=== PATIENT | male | born 1980 | race Caucasian/White ===

== ENCOUNTER 2023-12-01 23:08 | Inpatient (IN) | payer BC, OTHER ==
[2023-12-01 23:41] LABS: #Basophils 0.08 10x3/uL (0.0-0.2); #Eosinphils Less than 0.03 10x3/uL (0.0-0.7); %Basophils 0.5 % (0.0-1.0); %Eosinophils 0.1 % (0.0-10.0); %Lymphocytes 6.6 % (21.0-51.0); %Monocytes 5.8 % (0.0-10.0); %Neutrophils 86.4 % (42.0-75.0); Hematocrit 40.5 % (42.0-52.0); Hemoglobin 14.4 g/dL (14.0-18.0); Mean Corpuscular HGB CONC 35.6 g/dL (32.0-36.0); Mean Corpuscular Hemoglobin 32.7 pg (27.0-31.0); Mean Platelet Volume 10.9 fL (7.4-10.4); Platelet Count 226 10x3/uL (130-400); RBC Distribution Width 11.9 % (11.5-14.5)
[2023-12-02 00:05] LABS: ALT (SGPT) 10 U/L (8-55); AST (SGOT) 9 U/L (5-34); Albumin 3.5 g/dL (3.5-5.0); Alkaline Phosphatase 61 U/L (40-110); Anion Gap 15 mmol/L (10-20); BUN (Urea Nitrogen) 15 mg/dL (8.9-20.6); Bilirubin, Total 3.6 mg/dL (0.2-1.2); Calc. Creatinine Clearance 0 mL/min (70-130); Calcium 8.9 mg/dL (7.8-10.44); Carbon Dioxide 22 mmol/L (22-29); Chloride 95 mmol/L (98-107); Estimated GFR 103; Glucose 341 mg/dL (70-105); Potassium 4.5 mmol/L (3.5-5.1); Protein, Total 7.5 g/dL (6.0-8.3); Sodium 127 mmol/L (136-145)
[2023-12-02] MEDS ORDERED: Morphine 4 MG/ML VIAL ONE (03:02)
[2023-12-02] MEDS ORDERED: Sodium Chloride 0.9% 100 ML ONE (03:08)
[2023-12-02] MEDS ORDERED: Piperacillin/Tazobactam 4.5 GM VIAL ONE (03:08)
[2023-12-02] MEDS ORDERED: Vancomycin (BATCH) 2 GM/500 ML BAG ONE (06:37)
[2023-12-02 07:50] VITALS: BMI 35.9
[2023-12-02] MEDS ORDERED: Dextrose 50% Abboject 50 ML SYRINGE SLOW IVP PRN (08:38)
[2023-12-02] MEDS ORDERED: HumaLOG 300 UNITS/3 ML VIAL SC PRN ×2 (08:38)
[2023-12-02] MEDS ORDERED: Glucagon 1 MG/ML KIT IM PRN (08:38)
[2023-12-02] MEDS ORDERED: Dextrose 5% in Water 1,000 ML IV PRN (08:38)
[2023-12-02] MEDS: Cefepime 2 GM in Sodium Chloride 0.9% 100 ML IVPB SCH (10:14)
[2023-12-02] MEDS: Insulin Glargine 30 UNITS/0.3 ML VIAL SC SCH (10:15)
[2023-12-02] MEDS: Lactated Ringer's 1,000 ML IV SCH (11:55)
[2023-12-02] MEDS: Insulin Lispro 100 UNIT/ML 10 ML VIAL SC PRN ×2 (11:55→21:44)
[2023-12-02] MEDS: Acetaminophen 500 MG TAB PO SCH (11:55)
[2023-12-02] MEDS: Acetaminophen 325 MG TAB ONE (11:59)
[2023-12-02] MEDS ORDERED: Iopamidol-370 76% 500 ML MDV (1 ML CHARGE) ONE (12:46)
[2023-12-02] MEDS ORDERED: Magnevist 469MG/ML 20 ML VIAL ONE (13:25)
[2023-12-02 13:32] LABS: Hemoglobin A1c 8.6 % (4.0-6.0)
[2023-12-02] MEDS: metroNIDAZOLE 500 MG in Premix 1 BAG IVPB SCH (13:42)
[2023-12-02] MEDS: Vancomycin (BATCH) 1.25 GM in Premix 1 BAG IVPB SCH (13:42)
[2023-12-02] MEDS: oxyCODONE 5 MG TAB PO PRN (16:44)
[2023-12-02] MEDS ORDERED: Vancomycin 1.5 GM in Sodium Chloride 0.9% 250 ML 300 ML IVPB SCH (19:00)
[2023-12-03 05:21] LABS: #Basophils 0.05 10x3/uL (0.0-0.2); #Eosinphils Less than 0.03 10x3/uL (0.0-0.7); %Basophils 0.3 % (0.0-1.0); %Eosinophils 0.1 % (0.0-10.0); %Monocytes 7.6 % (0.0-10.0); %Neutrophils 84.9 % (42.0-75.0); Hematocrit 34.9 % (42.0-52.0); Hemoglobin 12.3 g/dL (14.0-18.0); Mean Corpuscular HGB CONC 35.2 g/dL (32.0-36.0); Mean Corpuscular Hemoglobin 33.8 pg (27.0-31.0); Mean Corpuscular Volume 95.9 fL (78.0-98.0); Mean Platelet Volume 10.7 fL (7.4-10.4); Platelet Count 195 10x3/uL (130-400); RBC Distribution Width 12.2 % (11.5-14.5); Red Blood Cell (RBC) Count 3.64 mill/uL (4.70-6.10)
[2023-12-03 05:52] LABS: Anion Gap 14 mmol/L (10-20); BUN (Urea Nitrogen) 15 mg/dL (8.9-20.6); Calc. Creatinine Clearance 197 mL/min (70-130); Calcium 8.2 mg/dL (7.8-10.44); Carbon Dioxide 24 mmol/L (22-29); Chloride 100 mmol/L (98-107); Estimated GFR 112; Glucose 184 mg/dL (70-105); Potassium 4.2 mmol/L (3.5-5.1); Sodium 134 mmol/L (136-145); Vancomycin, Random 17.4 ug/mL (See Comment)
[2023-12-03] MEDS: Enoxaparin 40 MG (0.4 mL) SYRINGE SC SCH (08:17)
[2023-12-03] MEDS ORDERED: Bupivacaine PF 0.5% 30 ML VIAL ONE (12:30)
[2023-12-03] MEDS ORDERED: Famotidine/PF 20 mg/2ml Vial ONE (12:40)
[2023-12-03] MEDS ORDERED: Lidocaine 2% PF 5 ML VIAL ONE (12:44)
[2023-12-03] MEDS ORDERED: fentaNYL 50 mcg/mL 1 mL Vial ONE (12:44)
[2023-12-03] MEDS ORDERED: PROPOFOL 20 ML ONE (12:44)
[2023-12-03] MEDS ORDERED: Ondansetron PF 4 MG/2 ML Vial ONE (13:00)
[2023-12-03 15:47] VITALS: BMI 35.9
[2023-12-03] MEDS ORDERED: Vancomycin (BATCH) 1.5 GM in Premix 1 BAG IVPB SCH (18:00)
[2023-12-03] MEDS: Vancomycin (BATCH) 1.5 GM in Premix 1 BAG IVPB SCH (20:25)
[2023-12-04 05:51] LABS: #Basophils 0.04 10x3/uL (0.0-0.2); %Basophils 0.4 % (0.0-1.0); %Eosinophils 1.1 % (0.0-10.0); %Lymphocytes 8.3 % (21.0-51.0); %Monocytes 7.2 % (0.0-10.0); %Neutrophils 82.3 % (42.0-75.0); Hematocrit 33.4 % (42.0-52.0); Hemoglobin 11.3 g/dL (14.0-18.0); Mean Corpuscular HGB CONC 33.8 g/dL (32.0-36.0); Mean Corpuscular Hemoglobin 32.3 pg (27.0-31.0); Mean Corpuscular Volume 95.4 fL (78.0-98.0); Mean Platelet Volume 11.2 fL (7.4-10.4); Platelet Count 202 10x3/uL (130-400); RBC Distribution Width 12.3 % (11.5-14.5)
[2023-12-04 06:09] LABS: Anion Gap 12 mmol/L (10-20); BUN (Urea Nitrogen) 16 mg/dL (8.9-20.6); Calc. Creatinine Clearance 202 mL/min (70-130); Calcium 7.7 mg/dL (7.8-10.44); Carbon Dioxide 27 mmol/L (22-29); Chloride 100 mmol/L (98-107); Estimated GFR 113; Glucose 210 mg/dL (70-105); Sodium 135 mmol/L (136-145)
[2023-12-05 06:11] LABS: Hematocrit 32.7 % (42.0-52.0); Hemoglobin 11.3 g/dL (14.0-18.0); Mean Corpuscular HGB CONC 34.6 g/dL (32.0-36.0); Mean Corpuscular Hemoglobin 33.3 pg (27.0-31.0); Mean Corpuscular Volume 96.5 fL (78.0-98.0); Mean Platelet Volume 10.7 fL (7.4-10.4); Platelet Count 214 10x3/uL (130-400); RBC Distribution Width 12.2 % (11.5-14.5); Red Blood Cell (RBC) Count 3.39 mill/uL (4.70-6.10)
[2023-12-05 06:28] LABS: Anion Gap 11 mmol/L (10-20); BUN (Urea Nitrogen) 12 mg/dL (8.9-20.6); Calc. Creatinine Clearance 240 mL/min (70-130); Calcium 8.1 mg/dL (7.8-10.44); Carbon Dioxide 26 mmol/L (22-29); Chloride 103 mmol/L (98-107); Estimated GFR 119; Glucose 173 mg/dL (70-105); Potassium 3.7 mmol/L (3.5-5.1); Sodium 136 mmol/L (136-145)
[2023-12-05 06:41] LABS: Eosinophils 4 % (0-10); Lymphocytes 14 % (21-51); Monocytes 3 % (0-10); Neutrophil 79 % (42-75); Platelet Adequacy Comment Platelets Normal; RBC Morphology Within Normal Limits
[2023-12-05] MEDS ORDERED: traMADol HCl 50 MG TAB PO PRN (08:32)
[2023-12-05] MEDS: oxyCODONE 5 MG TAB PO PRN (10:13)
[2023-12-05] MEDS: traMADol HCl 50 MG TAB PO PRN (21:09)
[2023-12-06] MEDS: Cefepime 2 GM VIAL ONE (02:10)
[2023-12-06 05:34] LABS: Anion Gap 12 mmol/L (10-20); BUN (Urea Nitrogen) 10 mg/dL (8.9-20.6); Calc. Creatinine Clearance 243 mL/min (70-130); Carbon Dioxide 26 mmol/L (22-29); Chloride 104 mmol/L (98-107); Estimated GFR 120; Glucose 132 mg/dL (70-105); Potassium 3.7 mmol/L (3.5-5.1); Sodium 138 mmol/L (136-145)
[2023-12-06 05:37] LABS: Hematocrit 34.9 % (42.0-52.0); Hemoglobin 11.8 g/dL (14.0-18.0); Mean Corpuscular HGB CONC 33.8 g/dL (32.0-36.0); Mean Corpuscular Volume 97.5 fL (78.0-98.0); Mean Platelet Volume 10.5 fL (7.4-10.4); Platelet Count 248 10x3/uL (130-400); RBC Distribution Width 12.3 % (11.5-14.5); Red Blood Cell (RBC) Count 3.58 mill/uL (4.70-6.10)
[2023-12-06 06:32] LABS: Anisocytosis MODERATE=16-30 cells HPF (0-5); Band 9 % (5-11); Eosinophils 3 % (0-10); Lymphocytes 21 % (21-51); Macrocytosis SLIGHT = 6-15 cells HPF (0-5); Monocytes 5 % (0-10); Neutrophil 61 % (42-75); Platelet Adequacy Comment Platelets Normal; Polychromasia SLIGHT = 2-3 cells HPF (0-2)
[2023-12-06] MEDS: Lisinopril 5 MG TAB PO SCH ×2 (09:57→17:39)
[2023-12-06] MEDS: Vancomycin (BATCH) 1.75 GM in Premix 1 BAG IVPB SCH (22:16)
[2023-12-07 05:44] LABS: Hematocrit 35.7 % (42.0-52.0); Hemoglobin 12.2 g/dL (14.0-18.0); Mean Corpuscular HGB CONC 34.2 g/dL (32.0-36.0); Mean Corpuscular Hemoglobin 32.3 pg (27.0-31.0); Mean Corpuscular Volume 94.4 fL (78.0-98.0); Platelet Count 296 10x3/uL (130-400); RBC Distribution Width 12.1 % (11.5-14.5); Red Blood Cell (RBC) Count 3.78 mill/uL (4.70-6.10)
[2023-12-07 06:09] LABS: Band 1 % (5-11); Eosinophils 6 % (0-10); Lymphocytes 22 % (21-51); Monocytes 12 % (0-10); Myelocyte 1 % (0-0); Neutrophil 55 % (42-75); Platelet Adequacy Comment Platelets Normal; RBC Morphology Within Normal Limits
[2023-12-07 06:59] LABS: Anion Gap 9 mmol/L (10-20); BUN (Urea Nitrogen) 6 mg/dL (8.9-20.6); Calc. Creatinine Clearance 247 mL/min (70-130); Carbon Dioxide 26 mmol/L (22-29); Chloride 103 mmol/L (98-107); Estimated GFR 120; Glucose 98 mg/dL (70-105); Potassium 3.4 mmol/L (3.5-5.1); Sodium 135 mmol/L (136-145)
[2023-12-07] MEDS: Amlodipine 5 MG TAB PO SCH (08:48)
[2023-12-07] MEDS: Lisinopril 10 MG TAB PO SCH (08:48)
[2023-12-07] MEDS: hydrALAZINE 25 MG TAB PO SCH ×4 (11:49→20:34)
[2023-12-08] MEDS: cloNIDine 0.1 MG TAB PO SCH (01:55)
[2023-12-08 06:13] LABS: %Basophils 1.4 % (0.0-1.0); %Eosinophils 4.8 % (0.0-10.0); %Lymphocytes 27.9 % (21.0-51.0); %Monocytes 10.1 % (0.0-10.0); %Neutrophils 53.4 % (42.0-75.0); Hematocrit 34.9 % (42.0-52.0); Hemoglobin 11.8 g/dL (14.0-18.0); Mean Corpuscular HGB CONC 33.8 g/dL (32.0-36.0); Mean Corpuscular Hemoglobin 31.9 pg (27.0-31.0); Mean Corpuscular Volume 94.3 fL (78.0-98.0); Mean Platelet Volume 9.7 fL (7.4-10.4); Platelet Count 304 10x3/uL (130-400); RBC Distribution Width 12.2 % (11.5-14.5)
[2023-12-08 06:28] LABS: Vancomycin, Random 19.1 ug/mL (See Comment)
[2023-12-08 06:33] LABS: Anion Gap 12 mmol/L (10-20); BUN (Urea Nitrogen) 6 mg/dL (8.9-20.6); Calc. Creatinine Clearance 258 mL/min (70-130); Calcium 7.8 mg/dL (7.8-10.44); Carbon Dioxide 27 mmol/L (22-29); Chloride 105 mmol/L (98-107); Estimated GFR 122; Glucose 123 mg/dL (70-105); Potassium 3.5 mmol/L (3.5-5.1); Sodium 140 mmol/L (136-145)
[2023-12-08] MEDS: Morphine 4 MG/ML VIAL ONE (12:04)
[2023-12-08] MEDS: hydrALAZINE 25 MG TAB PO SCH (20:16)
[2023-12-09 05:36] LABS: %Basophils 1.9 % (0.0-1.0); %Eosinophils 6.4 % (0.0-10.0); %Lymphocytes 28.8 % (21.0-51.0); %Monocytes 9.9 % (0.0-10.0); %Neutrophils 49.9 % (42.0-75.0); Hematocrit 37.9 % (42.0-52.0); Hemoglobin 12.8 g/dL (14.0-18.0); Mean Corpuscular HGB CONC 33.8 g/dL (32.0-36.0); Mean Corpuscular Hemoglobin 31.9 pg (27.0-31.0); Mean Corpuscular Volume 94.5 fL (78.0-98.0); Mean Platelet Volume 9.7 fL (7.4-10.4); Platelet Count 327 10x3/uL (130-400); RBC Distribution Width 12.3 % (11.5-14.5); Red Blood Cell (RBC) Count 4.01 mill/uL (4.70-6.10)
[2023-12-09 06:29] LABS: Anion Gap 14 mmol/L (10-20); BUN (Urea Nitrogen) 4 mg/dL (8.9-20.6); Calc. Creatinine Clearance 258 mL/min (70-130); Calcium 8.1 mg/dL (7.8-10.44); Carbon Dioxide 27 mmol/L (22-29); Chloride 102 mmol/L (98-107); Estimated GFR 122; Glucose 118 mg/dL (70-105); Potassium 3.7 mmol/L (3.5-5.1); Sodium 139 mmol/L (136-145)
[2023-12-09] MEDS: Lisinopril 10 MG TAB PO SCH (20:51)
[2023-12-10 06:08] LABS: #Basophils 0.08 10x3/uL (0.0-0.2); %Basophils 1.6 % (0.0-1.0); %Eosinophils 5.7 % (0.0-10.0); %Lymphocytes 29.2 % (21.0-51.0); %Neutrophils 51.8 % (42.0-75.0); Hematocrit 37.6 % (42.0-52.0); Hemoglobin 12.5 g/dL (14.0-18.0); Mean Corpuscular HGB CONC 33.2 g/dL (32.0-36.0); Mean Corpuscular Hemoglobin 32.3 pg (27.0-31.0); Mean Corpuscular Volume 97.2 fL (78.0-98.0); Mean Platelet Volume 9.9 fL (7.4-10.4); Platelet Count 341 10x3/uL (130-400); RBC Distribution Width 12.5 % (11.5-14.5); Red Blood Cell (RBC) Count 3.87 mill/uL (4.70-6.10)
[2023-12-10 06:27] LABS: Anion Gap 11 mmol/L (10-20); BUN (Urea Nitrogen) 5 mg/dL (8.9-20.6); Calc. Creatinine Clearance 250 mL/min (70-130); Calcium 8.1 mg/dL (7.8-10.44); Carbon Dioxide 25 mmol/L (22-29); Chloride 107 mmol/L (98-107); Estimated GFR 121; Glucose 135 mg/dL (70-105); Potassium 3.5 mmol/L (3.5-5.1); Sodium 139 mmol/L (136-145)
[2023-12-10] MEDS: Amlodipine 10 MG TAB PO SCH (08:54)
[2023-12-10] MEDS: Morphine 4 MG/ML VIAL SLOW IVP PRN (11:21)
[2023-12-11 07:05] LABS: #Basophils 0.09 10x3/uL (0.0-0.2); %Basophils 1.7 % (0.0-1.0); %Eosinophils 4.8 % (0.0-10.0); %Monocytes 10.6 % (0.0-10.0); %Neutrophils 51.2 % (42.0-75.0); Hematocrit 38.5 % (42.0-52.0); Hemoglobin 13.3 g/dL (14.0-18.0); Mean Corpuscular HGB CONC 34.5 g/dL (32.0-36.0); Mean Corpuscular Hemoglobin 32.5 pg (27.0-31.0); Mean Corpuscular Volume 94.1 fL (78.0-98.0); Mean Platelet Volume 9.6 fL (7.4-10.4); Platelet Count 325 10x3/uL (130-400); RBC Distribution Width 12.3 % (11.5-14.5); Red Blood Cell (RBC) Count 4.09 mill/uL (4.70-6.10)
[2023-12-11 07:20] LABS: Anion Gap 11 mmol/L (10-20); BUN (Urea Nitrogen) 6 mg/dL (8.9-20.6); Calc. Creatinine Clearance 230 mL/min (70-130); Carbon Dioxide 26 mmol/L (22-29); Chloride 105 mmol/L (98-107); Estimated GFR 118; Glucose 198 mg/dL (70-105); Potassium 3.7 mmol/L (3.5-5.1); Sodium 138 mmol/L (136-145)
[2023-12-11 16:19] VITALS: BP 165/102; TEMP 98.3
== END 2023-12-11 17:50 | disposition home or self-care (01) | DRG 853 ==
LOC: ERS 23:08 → ERHOLD 12-02 06:25 → SURG B 12-02 06:29 → OBSVTOIN 12-02 11:08
PROVIDERS: ADMIT Student in an Organized Health Care Education/Training Program; ATTEND Internal Medicine
PROC: 0Y6M0ZF Detachment at Right Foot, Partial 5th Ray, Open Approach (ICD-10-PCS; principal; 2023-12-03)
DX: A41.59 Other Gram-negative sepsis (principal); M72.6 Necrotizing fasciitis; E87.1 Hypo-osmolality and hyponatremia; L02.611 Cutaneous abscess of right foot; L03.115 Cellulitis of right lower limb; M60.073 Infective myositis, right foot; I10 Essential (primary) hypertension; E11.69 Type 2 diabetes mellitus with other specified complication; G43.909 Migraine, unspecified, not intractable, without status migrainosus; F41.9 Anxiety disorder, unspecified; F32.A Depression, unspecified; F17.290 Nicotine dependence, other tobacco product, uncomplicated; E11.40 Type 2 diabetes mellitus with diabetic neuropathy, unspecified; I16.0 Hypertensive urgency; Z79.4 Long term (current) use of insulin; Z79.2 Long term (current) use of antibiotics; Z79.899 Other long term (current) drug therapy; Z91.148 Patient's other noncompliance with medication regimen for other reason; Z79.84 Long term (current) use of oral hypoglycemic drugs
CPT/HCPCS: 36415; 36416; 80048; 80053; 80202; 82248; 83036; 83605; 85025; 86141; 87040; 87070; 87077; 87149; 87186; 87205; 93005; 93970; 96374; 96375; 97139; A9579; J0665; J0692; J1650; J1815; J2001; J2270; J2405; J2543; J2704; J3010; J3370; J3490; J7120; Q9967; S0028